=== PATIENT | male | born 1990 | race Caucasian/White ===

== ENCOUNTER 2017-01-07 17:57 | Emergency (ER) | payer BC ==
[~2017-01-07] VITALS: Ht 177.8 cm; Wt 99.0 kg
[2017-01-07 18:09] VITALS: BP 125/62
== END 2017-01-07 19:03 | disposition left against medical advice (07) ==
LOC: ER 18:24
DX: F41.9 Anxiety disorder, unspecified (principal); A35 Other tetanus; Z53.21 Procedure and treatment not carried out due to patient leaving prior to being seen by health care provider

== ENCOUNTER 2018-12-27 17:06 | Emergency (ER) | payer SELFPAY ==
[~2018-12-27] VITALS: Ht 177.8 cm; Wt 100.0 kg
[2018-12-27] MEDS ORDERED: SODIUM CHLORIDE 0.9% 1,000 ML IV ONE (17:37)
[2018-12-27] MEDS: LORAZEPAM 2MG/ML CPJ IV ONE ×2 (18:17→18:18)
[2018-12-27 18:18] LABS: BASOPHILS % 0.4 % (0.0-2.0); EOSINOPHILS % 0.4 % (0.0-5.0); HEMATOCRIT. 45.6 % (42.0-52.0); HEMOGLOBIN. 16.2 g/dL (14.0-18.0); MEAN CORPUSCULAR HEMOGLOBIN 30.4 pg (28.0-32.0); MEAN CORPUSCULAR VOLUME 85.3 fL (80.0-94.0); MEAN PLATELET VOLUME 8.6 fl (7.4-10.4); MONOCYTES % 11.1 % (2.0-8.0); NEUTROPHILS % 61.1 % (40.0-76.0); PLATELET 217 x1000/uL (130-400); RED BLOOD CELL COUNT 5.34 mill/uL (4.7-6.1); RED CELL DISTRIBUTION WIDTH 13.4 % (11.6-14.6)
[2018-12-27 18:24] LABS: CHLORIDE 109 mEq/L (98-107)
[2018-12-27 18:29] LABS: METHADONE URINE SCREEN NEGATIVE (NEGATIVE); OPIATES URINE SCREEN NEGATIVE (NEGATIVE)
[2018-12-27 18:29] LABS: ETHANOL BLOOD < 10 mg/dL
[2018-12-27 18:30] LABS: *AMPHETAMINES SCREEN URINE NEGATIVE (NEGATIVE); *BARBITURATES SCREEN URINE NEGATIVE (NEGATIVE); *BENZODIAZEPINES SCREEN URINE NEGATIVE (NEGATIVE); *COCAINE SCREEN URINE NEGATIVE (NEGATIVE); CANNABINOID URINE SCREEN NEGATIVE (NEGATIVE); PHENCYCLIDINE URINE SCREEN NEGATIVE (NEGATIVE)
[2018-12-27 21:02] VITALS: BP 135/72
== END 2018-12-27 21:10 | disposition home or self-care (01) ==
LOC: ER 17:06
DX: F41.9 Anxiety disorder, unspecified (principal); R07.89 Other chest pain; F12.10 Cannabis abuse, uncomplicated; F16.10 Hallucinogen abuse, uncomplicated
CPT/HCPCS: 36415; 71045; 80053; 80305; 80320; 84484; 85025; 93005; 96374; 99284; J2060; J7030; G0480

== ENCOUNTER 2019-03-31 15:38 | Emergency (ER) | payer BC ==
[~2019-03-31] VITALS: Ht 170.2 cm; Wt 118.0 kg
[2019-03-31 15:51] VITALS: BP 143/73
== END 2019-04-01 14:21 | disposition left against medical advice (07) ==
LOC: ER 15:38
DX: Z53.21 Procedure and treatment not carried out due to patient leaving prior to being seen by health care provider (principal)
CPT/HCPCS: 93005

== ENCOUNTER 2021-10-09 22:46 | Emergency (ER) | payer BC, MEDICAID ==
[~2021-10-09] VITALS: Ht 177.8 cm; Wt 113.0 kg
== END 2021-10-10 00:30 | disposition left against medical advice (07) ==
LOC: ER 22:46
DX: F32.A Depression, unspecified (principal); F41.9 Anxiety disorder, unspecified; F14.10 Cocaine abuse, uncomplicated; F12.10 Cannabis abuse, uncomplicated
CPT/HCPCS: 99281